=== PATIENT | female | born 1970 | race Caucasian/White ===

== ENCOUNTER 2017-11-11 10:39 | Outpatient (CLI) | payer MEDICARE, MEDICAID ==
[~2017-11-11 10:39] MED LIST: BUSP10TA11 PO; LORA10TA7 PO; LURA40TA3 PO; OMEP20TA5 PO; TEMA15CA5 PO; VENL150T3 PO
[2017-11-11] MEDS ORDERED: VENL150C2 PO (15:15)
[2017-11-11] MEDS ORDERED: MELA5TAB12 PO (15:15)
[2017-11-11] MEDS ORDERED: VENL75CA55 PO (15:15)
[2017-11-11 15:37] LABS: BASOPHILS # (AUTO) 0.1 X10'3 (0-0.2); BASOPHILS % (AUTO) 0.9 % (0-1); EOSINOPHILS # (AUTO) 0.1 X10'3 (0-0.9); EOSINOPHILS % (AUTO) 2.3 % (0-6); LYMPHOCYTES # (AUTO) 1.9 X10'3 (1.1-4.8); LYMPHOCYTES % (AUTO) 31.3 % (21-51); MEAN CORPUSCULAR HEMOGLOBIN 24.9 PG (27.0-31.0); MEAN CORPUSCULAR HGB CONC 31.9 % (33.0-36.5); MEAN CORPUSCULAR VOLUME 78.1 FL (78-98); MEAN PLATELET VOLUME 8.1 FL (7.4-10.4); MONOCYTES # (AUTO) 0.4 X10'3 (0-0.9); MONOCYTES % (AUTO) 6.8 % (2-12); NEUTROPHILS # (AUTO) 3.6 X10'3 (1.8-7.7); NEUTROPHILS % (AUTO) 58.7 % (42-75); PRE OP HEMATOCRIT 34.3 % (35.0-45.0); PRE OP PLATELET COUNT 362 X10'3 (140-440); RED BLOOD COUNT 4.39 X10'6 (4.20-5.60); RED CELL DISTRIBUTION WIDTH 16.4 % (11.5-14.5)
[2017-11-11 15:44] LABS: PRE OP HEMOGLOBIN 10.9 g/dL (12.0-16.0)
[2017-11-11 15:47] LABS: PRE OP INR 0.9 INR; PRE OP PROTIME 9.8 SECONDS (9.0-12.0)
[2017-11-11 15:57] LABS: ALBUMIN 3.5 G/DL (3.4-5.0); ALBUMIN/GLOBULIN RATIO 0.9 (1.1-1.5); ALKALINE PHOSPHATASE 98 IU/L (46-116); BLOOD UREA NITROGEN 15 MG/DL (7-18); BUN/CREATININE RATIO 17.4 (6.6-38.0); CALCIUM 8.5 MG/DL (8.5-10.1); CHLORIDE 105 MMOL/L (99-107); CREATININE 0.86 MG/DL (0.40-0.90); PRE OP ALT 22 U/L (30-65); PRE OP ANION GAP 7 (8-16); PRE OP AST 15 U/L (10-37); PRE OP BILIRUB, TOTAL 0.3 MG/DL (0.0-1.0); PRE OP GLUCOSE 99 MG/DL (70-104); PRE OP POTASSIUM 4.3 MMOL/L (3.4-5.1); PRE OP SODIUM 141 MMOL/L (135-145); TOTAL CARBON DIOXIDE 29.3 MMOL/L (24-32); TOTAL PROTEIN 7.4 G/DL (6.4-8.2); eGFR 71 ML/MIN
[2017-11-11 16:01] LABS: HCG SERUM QL NEGATIVE
== END 2017-11-11 23:59 | disposition home or self-care (01) ==
LOC: PRE-OP 10:39 → EDSTATUS 11-17 08:00
PROVIDERS: ATTEND Specialist
DX: N81.4 Uterovaginal prolapse, unspecified (principal); R10.2 Pelvic and perineal pain
CPT/HCPCS: 36415; 80053; 84703; 85025; 85610; 85730; 86885; 86900; 86901; 87070

== ENCOUNTER → 2017-12-22 | Day surgery (SDC) | payer MEDICARE, MEDICAID ==
[2017-12-16 17:14] LABS: BASOPHILS # (AUTO) 0.1 X10'3 (0-0.2); BASOPHILS % (AUTO) 0.6 % (0-1); EOSINOPHILS # (AUTO) 0.2 X10'3 (0-0.9); EOSINOPHILS % (AUTO) 2.5 % (0-6); LYMPHOCYTES % (AUTO) 24.2 % (21-51); MEAN CORPUSCULAR HGB CONC 32.3 % (33.0-36.5); MEAN CORPUSCULAR VOLUME 77.4 FL (78-98); MEAN PLATELET VOLUME 8.3 FL (7.4-10.4); MONOCYTES # (AUTO) 0.6 X10'3 (0-0.9); MONOCYTES % (AUTO) 6.7 % (2-12); NEUTROPHILS # (AUTO) 5.5 X10'3 (1.8-7.7); PRE OP HEMATOCRIT 33.2 % (35.0-45.0); PRE OP PLATELET COUNT 313 X10'3 (140-440); RED BLOOD COUNT 4.29 X10'6 (4.20-5.60); RED CELL DISTRIBUTION WIDTH 16.7 % (11.5-14.5)
[2017-12-16 17:15] LABS: PRE OP HEMOGLOBIN 10.7 g/dL (12.0-16.0)
[2017-12-16 17:25] LABS: PRE OP INR 0.9 INR; PRE OP PROTIME 9.7 SECONDS (9.0-12.0)
[2017-12-16 17:29] LABS: ALBUMIN 3.7 G/DL (3.4-5.0); ALBUMIN/GLOBULIN RATIO 1.1 (1.1-1.5); ALKALINE PHOSPHATASE 91 IU/L (46-116); BLOOD UREA NITROGEN 16 MG/DL (7-18); BUN/CREATININE RATIO 20.3 (6.6-38.0); CALCIUM 8.7 MG/DL (8.5-10.1); CHLORIDE 103 MMOL/L (99-107); CREATININE 0.79 MG/DL (0.40-0.90); PRE OP ALT 18 U/L (30-65); PRE OP ANION GAP 11 (8-16); PRE OP AST 13 U/L (10-37); PRE OP BILIRUB, TOTAL 0.3 MG/DL (0.0-1.0); PRE OP GLUCOSE 96 MG/DL (70-104); PRE OP POTASSIUM 3.9 MMOL/L (3.4-5.1); PRE OP SODIUM 140 MMOL/L (135-145); TOTAL CARBON DIOXIDE 26.3 MMOL/L (24-32); TOTAL PROTEIN 7.2 G/DL (6.4-8.2); eGFR 78 ML/MIN
[~2017-12-22] VITALS: Ht 170.2 cm; Wt 95.3 kg
[~2017-12-22] MED LIST changes: +BUPIVAcaine/PF 2.5 mg/ml (0.25%) 30ml vial ONE; +GENTAMICIN IV ONE; +LIDOcaine 1% 30ml preserv. free vial ONE; -LORA10TA7 PO; +MELA5TAB12 PO; +NORMAL SALINE IV ONE; -TEMA15CA5 PO; +VENL150C2 PO; -VENL150T3 PO; +ceFAZolin 1000mg inj ONE; +clindamycin phosphate 40gm vag cream ONE; +clindamycin-Cleocin 900mg/D5W 50 ML IV ONE; +famotidine 20mg tablet PO ONE; +morphine 10mg/ml inj. ONE; +ringers solution, lacted 1,000 ML IV SCH; +vasoPRESSIN 20 units/ml inj. ONE
[2017-12-22 10:46] LABS: ISTAT CREATININE 0.7 mg/dL (0.6-1.1); ISTAT HGB 12.6 g/dl (12.0-16.0); ISTAT IONIZED CALCIUM 1.16 mmol/L (1.03-1.32); ISTAT K 4.1 mmol/L (3.5-5.1); POC BUN/CREATININE RATIO 18.6 (6.6-38.0)
== END | disposition home or self-care (01) ==
LOC: PAS 08:36
PROVIDERS: ATTEND Specialist
DX: D25.1 Intramural leiomyoma of uterus (principal); N81.4 Uterovaginal prolapse, unspecified; N81.6 Rectocele; F41.9 Anxiety disorder, unspecified; F32.9 Major depressive disorder, single episode, unspecified; J45.909 Unspecified asthma, uncomplicated; K21.9 Gastro-esophageal reflux disease without esophagitis; B15.9 Hepatitis A without hepatic coma; G43.909 Migraine, unspecified, not intractable, without status migrainosus; E66.9 Obesity, unspecified; Z53.8 Procedure and treatment not carried out for other reasons; Z88.1 Allergy status to other antibiotic agents; Z88.0 Allergy status to penicillin; Z88.2 Allergy status to sulfonamides; Z87.891 Personal history of nicotine dependence; Z72.89 Other problems related to lifestyle; Z93.0 Tracheostomy status; Z98.84 Bariatric surgery status; Z90.49 Acquired absence of other specified parts of digestive tract; Z98.890 Other specified postprocedural states; Z79.899 Other long term (current) drug therapy; Z68.32 Body mass index [BMI] 32.0-32.9, adult
CPT/HCPCS: 36415; 80047; 80053; 85025; 85610; 85730; 86885; 86900; 86901; J1580; J2270; J3490; J7030; J7120; J0690

== ENCOUNTER 2023-11-05 19:37 | Emergency (ER) | payer MEDICARE, MEDICAID ==
[~2023-11-05] VITALS: Ht 170.2 cm; Wt 86.0 kg
[~2023-11-05 19:37] MED LIST changes: -BUPIVAcaine/PF 2.5 mg/ml (0.25%) 30ml vial ONE; -GENTAMICIN IV ONE; -LIDOcaine 1% 30ml preserv. free vial ONE; +LURA40TA2 PO; -LURA40TA3 PO; -NORMAL SALINE IV ONE; +OMEP20TA43 PO; -OMEP20TA5 PO; -VENL150C2 PO; +VENL150C5 PO; -ceFAZolin 1000mg inj ONE; -clindamycin phosphate 40gm vag cream ONE; -clindamycin-Cleocin 900mg/D5W 50 ML IV ONE; -famotidine 20mg tablet PO ONE; -morphine 10mg/ml inj. ONE; -ringers solution, lacted 1,000 ML IV SCH; -vasoPRESSIN 20 units/ml inj. ONE
[2023-11-06] MEDS: bacitracin 15gm ointment TP ONE (02:44)
[2023-11-06 02:45] VITALS: BP 124/69; PULSE 64; RESP 16; TEMP 98.4; O2SAT 100
== END 2023-11-06 02:52 | disposition home or self-care (01) ==
LOC: ER 19:38
DX: S00.12XA Contusion of left eyelid and periocular area, initial encounter (principal); S00.11XA Contusion of right eyelid and periocular area, initial encounter; W10.1XXA Fall (on)(from) sidewalk curb, initial encounter; Y93.89 Activity, other specified; Y92.89 Other specified places as the place of occurrence of the external cause; Y99.8 Other external cause status; F12.10 Cannabis abuse, uncomplicated; Z88.0 Allergy status to penicillin; Z88.2 Allergy status to sulfonamides
CPT/HCPCS: 70450; 99284

== ENCOUNTER 2024-12-24 08:03 | Day surgery (SDC) | payer MEDICARE, MEDICAID ==
[~2024-12-24] VITALS: Ht 170.2 cm; Wt 81.8 kg
[~2024-12-24 08:03] MED LIST changes: +ACET-1008 PO; +ALBU18HF2 INH; -BUSP10TA11 PO; +CELEBREX PO; +DULO60CA59 PO; +GABA-530 PO; -LURA40TA2 PO; -VENL150C5 PO
[2024-12-24 08:35] VITALS: BP 132/69; PULSE 59; RESP 17; TEMP 98.7
[2024-12-24] MEDS ORDERED: fentaNYL/PF 50MCG/1 ML 2ML syringe ONE (09:15)
[2024-12-24] MEDS ORDERED: propofol inj 20 ML IV ONE (09:16)
[2024-12-24] MEDS ORDERED: midazolam 1 mg/ML 2ml injection ONE (09:16)
[2024-12-24 09:39] VITALS: BP 114/67; PULSE 74; RESP 20; O2SAT 95
[2024-12-24 09:50] VITALS: BP 116/84; PULSE 62; RESP 14; O2SAT 99
[2024-12-24 10:00] VITALS: BP 116/63; PULSE 60; RESP 17; O2SAT 100
[2024-12-24 10:10] VITALS: BP 126/71; PULSE 56; RESP 15; O2SAT 99
== END 2024-12-24 10:23 | disposition home or self-care (01) ==
LOC: OR 08:03
PROVIDERS: ATTEND Internal Medicine Gastroenterology
DX: R19.5 Other fecal abnormalities (principal); Z87.891 Personal history of nicotine dependence; Z88.0 Allergy status to penicillin; Z88.2 Allergy status to sulfonamides; Z88.8 Allergy status to other drugs, medicaments and biological substances; Z72.89 Other problems related to lifestyle; Z96.651 Presence of right artificial knee joint; Z98.890 Other specified postprocedural states; Z79.899 Other long term (current) drug therapy
CPT/HCPCS: 45378; A4620; J2250; J2704; J3010; J7030; Z7512